=== PATIENT | female | born 1980 | race Caucasian/White ===

== ENCOUNTER 2020-01-03 07:28 | Emergency (ER) | payer OTHER ==
[~2020-01-03] VITALS: Ht 152.4 cm; Wt 81.6 kg
[2020-01-03 07:33] VITALS: Ht 152.4 cm; Wt 81.6 kg
[2020-01-03 09:29] VITALS: BP 125/86
== END 2020-01-03 09:29 | disposition home or self-care (01) ==
LOC: ED 07:28
DX: M25.561 Pain in right knee (principal); R07.89 Other chest pain; R10.9 Unspecified abdominal pain; I10 Essential (primary) hypertension; E11.9 Type 2 diabetes mellitus without complications
CPT/HCPCS: Q0092